=== PATIENT | male | born 1990 | race Caucasian/White ===

== ENCOUNTER 2017-03-28 21:32 | Emergency (ER) | payer OTHER ==
[~2017-03-28] VITALS: Ht 182.9 cm; Wt 107.2 kg
[2017-03-28 21:37] VITALS: TEMP 36.7; Ht 182.9 cm; Wt 107.2 kg
--- NOTE | 2017-03-28 21:47 | EMERGENCY ROOM VISIT NOTE ---
History Report prepared by Magaly: Elmer Arzate Under the Supervision of: Dr. Kobe García D.O. First contact with patient: 21:36 Chief Complaint: GROIN PAIN Stated Complaint: GROIN PAIN History of Present Illness The patient is a 27 year old male who presents to the Emergency Room with complaints of persistent pain localized to the right testicle that began today at 1700, 4.5 hours prior to arrival. The patient rates his pain as a 10/10 in severity. He states that his pain onset suddenly when he stood after sitting for a time. He denies any current associated back pain, urinary difficulties, or hematuria. The patient has no history of hernia or testicular infection. Source of History: patient Onset: 4.5 hours [employer] Position: other (Genitourinary (right testicle)) Symptom Intensity: 10/10 Timing: other (Persistent) Associated Symptoms: No urinary symptoms Review of Systems See HPI for pertinent positives and negatives. A total of ten systems were reviewed and were otherwise negative. Past Medical & Surgical Patient notes not past medical/surgical history Family History Patient denies any past medical/surgical history Social History Alcohol Use: none Drug Use: none Marital Status: single Occupation Status: unemployed Current/Historical Medications No Active Prescriptions or Reported Meds Allergies Coded Allergies: No Known Allergies (Unverified , 03/28/17) Physical Exam Vital Signs Date Time Temp Pulse Resp B/P (MAP) Pulse Ox O2 Delivery O2 Flow Rate FiO2 03/28/17 23:05 88 18 127/78 100 Room Air 03/28/17 21:37 36.7 104 18 151/83 100 Room Air Physical Exam GENERAL: Awake, alert, well-appearing, in no distress HENT: Normocephalic, atraumatic. Oropharynx unremarkable. EYES: Normal conjunctiva. Sclera non-icteric. NECK: Supple. No nuchal rigidity. FROM. No JVD. RESPIRATORY: Clear to auscultation. CARDIAC: Regular rate, normal rhythm. Extremities warm and well perfused. Pulses equal. ABDOMEN: Soft, non-distended. No tenderness to palpation. No rebound or guarding. No masses. RECTAL: Deferred. MUSCULOSKELETAL: Chest examination reveals no tenderness. The back is symmetrical on inspection without obvious abnormality. There is no CVA tenderness to palpation. No joint edema. LOWER EXTREMITIES: Calves are equal size bilaterally and non-tender. No edema. No discoloration. NEURO: Normal sensorium. No sensory or motor deficits noted. SKIN: No rash or jaundice noted. GENITOURINARY: There is right testicular tenderness with palpation. Normal cremasteric reflex. No lesions present, no masses palpated. Medical Decision & Procedures ER Provider Diagnostic Interpretation: X ray results as stated below per my interpretation and radiologist interpretation. Other radiology results as stated below per my review and radiologist interpretation US SCROTAL: No intratesticular mass lesion or torsion. Small complex right hydrocele Radiologist: Danielle Ibrahim M.D. Study ready at 2338 and initial results transmitted at 2340 Laboratory Results Test 03/28/17 22:50 Urine Color YELLOW Urine Appearance CLEAR (CLEAR) Urine pH 7.0 (4.5-7.5) Urine Specific Protivin 1.008 (1.000-1.030) Urine Protein NEG (NEG) Urine Glucose (UA) NEG (NEG) Urine Ketones NEG (NEG) Urine Occult Blood NEG (NEG) Urine Nitrite NEG (NEG) Urine Bilirubin NEG (NEG) Urine Urobilinogen NEG (NEG) Urine Leukocyte Esterase NEG (NEG) Laboratory results reviewed by me ED Course 2138: The patient was evaluated in room B4B. A complete history and physical exam was performed. 2150: Ordered Toradol 60 mg IM. 0003: I reevaluated the patient. Discussed results and discharge instructions: He verbalized understanding and agreement. The patient is ready for discharge. Medical Decision Blood pressure screening: Patient was found to have an elevated blood pressure. This was a situational finding. I do not believe a follow-up is necessary. Medication Reconciliation: I attest that I have personally reviewed the patient' s current medication list. Differential Diagnosis include; Orchitis, epididymitis, hernia, kidney stone, UTI. Patient on repeat examination no distress smiling. I've discussed workup of the patient was found to have a hydrocele is no evidence of testicular torsion. Patient's urinalysis was normal. Patient was advised to take anti- inflammatories such as ibuprofen as well as wearing a jockstrap Impression Primary Impression: Hydrocele of testis Additional Impression: Scrotal pain Scribe Attestation The scribe's documentation has been prepared under my direction and personally reviewed by me in its entirety. I confirm that the note above accurately reflects all work, treatment, procedures, and medical decision making performed by me. Departure Information Dispostion Home / Self-Care Prescriptions No Active Prescriptions or Reported Meds Patient Instructions ED Hydrocele Type Not Specified, [facility] Problem Qualifiers
[2017-03-28] MEDS ORDERED: KETOROLAC TROMETHAMINE 60 MG/2 ML VIAL IM STA (21:51)
[2017-03-28 23:14] LABS: URINE APPEARANCE CLEAR (CLEAR); URINE BILIRUBIN NEG (NEG); URINE COLOR YELLOW; URINE NITRITE NEG (NEG); URINE SPECIFIC GRAVITY 1.008 (1.000-1.030); UROBILINOGEN NEG (NEG)
[2017-03-28 23:22] LABS: MANUAL MICROSCOPIC REQUIRED? NO; REVIEW REQ? NO
[2017-03-29 00:27] VITALS: BP 142/76; PULSE 73; O2SAT 99
--- NOTE | 2017-03-29 07:15 | DIAGNOSTIC IMAGING REPORT ---
TESTICULAR ULTRASOUND HISTORY: Right-sided groin pain COMPARISON: None. FINDINGS: Right testis: 3.8 x 2.6 x 2.1 cm. There are no intratesticular masses. Normal color flow. Small slightly complex hydrocele.. The epididymis is unremarkable. Left testis: 4.0 x 2.2 x 2.5 cm. There are no intratesticular masses. Normal color flow. No hydrocele. The epididymis is unremarkable. IMPRESSION: 1. Small right-sided slightly complex hydrocele. 2. Normal bilateral testes. Electronically signed by: Chapito Sommers M.D. 03/29/2017 7:13 AM Dictated Date/Time: 03/29/2017 7:12 AM
== END 2017-03-29 00:30 | disposition home or self-care (01) ==
LOC: C.EDB 21:36
DX: N43.3 Hydrocele, unspecified (principal); N50.82 Scrotal pain